=== PATIENT | male | born 1965 | race African-American/Black ===

== ENCOUNTER 2017-07-26 09:19 | Emergency (ER) | payer OTHER ==
[~2017-07-26] VITALS: Ht 177.8 cm; Wt 93.1 kg
[2017-07-26 10:13] LABS: HEMATOCRIT 43.9 % (38.0-50.0); MCHC 33.7 G/DL (30.0-36.0); MEAN PLAT.VOLUME 9.2 uM^3 (9.0-12.4); PLATELET COUNT 243 K/uL (156-360); RBC DIS.WIDTH-CV 12.4 % (11.8-14.6); RBC DIS.WIDTH-SD 41.1 % (39-53); RED BLOOD COUNT 4.93 M/uL (4.00-5.50)
[2017-07-26 10:24] LABS: CHLORIDE 112 mEq/L (99-109); POTASSIUM 4.6 mEq/L (3.7-5.4); SODIUM 137 mEq/L (136-147)
[2017-07-26 10:27] LABS: GLUCOSE 112 mg/dL (70-99)
[2017-07-26 10:28] LABS: ANION GAP 5 MEQ/L (2-14)
[2017-07-26 10:29] LABS: TOTAL BILIRUBIN 0.4 mg/dL (0.0-1.0)
[2017-07-26 10:30] LABS: ALKALINE PHOSPHATASE 68 IU/L (3-129); GFR ESTIMATE (CALCULATED) > 59 mL/min/
[2017-07-26 10:31] LABS: UREA NITROGEN (BUN) 11 mg/dL (9-23)
[2017-07-26] MEDS ORDERED: ZOFRAN4 MG PO (12:50)
[2017-07-26 13:07] VITALS: BP 130/83
== END 2017-07-26 13:19 | disposition home or self-care (01) ==
LOC: EME 09:19
PROVIDERS: Emergency Medicine
DX: R11.0 Nausea (principal); R10.32 Left lower quadrant pain; R42 Dizziness and giddiness; Z98.890 Other specified postprocedural states
CPT/HCPCS: 74176; 80053; 85027; 99281; 99285; J2405; J7030

== ENCOUNTER → 2017-08-03 | Outpatient (CLI) | payer OTHER ==
[~2017-08-03] MED LIST: ZOFRAN4 MG PO
== END | disposition home or self-care (01) ==
LOC: CDC 13:59
DX: H59.021 Cataract (lens) fragments in eye following cataract surgery, right eye (principal)
CPT/HCPCS: 93000